=== PATIENT | male | born 1965 | race Two or more races ===

== ENCOUNTER 2017-12-05 13:12 | Inpatient (IN) | payer OTHER ==
[~2017-12-05] VITALS: Ht 165.1 cm; Wt 74.2 kg
[2017-12-05 13:17] VITALS: Ht 165.1 cm; Wt 74.2 kg
[2017-12-05 14:22] LABS: BASOPHIL % 0.4 % (0-2); PLATELET COUNT 192 x10^3mcL (130-400)
[2017-12-05 14:28] LABS: CARBON DIOXIDE 25.6 mmol/L (21-32); CHLORIDE SERUM 107 mmol/L (98-107); CREATININE SERUM 0.8 mg/dL (0.7-1.3); GFR1 > 60 mL/min; GLUCOSE SERUM 78 mg/dL (74-106); POTASSIUM SERUM 3.8 mmol/L (3.5-5.1); SODIUM SERUM 137 mmol/L (136-145)
[2017-12-05 14:32] LABS: ALBUMIN 3.6 g/dL (3.4-5.0); ALKALINE PHOSPHATASE 105 U/L (46-116); ALT/SGPT 64 U/L (16-63); AST/SGOT 36 U/L (15-37); BILIRUBIN TOTAL 1.8 mg/dL (0.20-1.00); TOTAL PROTEIN, SERUM 6.3 g/dL (6.4-8.2)
[2017-12-05 14:34] LABS: RED CELL DISTRIBUTION WIDTH 15.1 % (11.5-14.5)
[2017-12-05 14:41] LABS: microscopic required? YES; urine erythrocyte NEGATIVE (NEGATIVE)
[2017-12-05 14:56] LABS: AMPHETAMINE QUAL UR NONE DETECTED (See below)
[2017-12-05] MEDS ORDERED: LIPITOR40 MG PO (14:58)
[2017-12-05] MEDS ORDERED: PLA75 PO (14:58)
[2017-12-05] MEDS ORDERED: ASPIRIN EC325 M1 PO (14:58)
[2017-12-05] MEDS ORDERED: METOPROLOL TART25 M1 PO (14:59)
[2017-12-05] MEDS ORDERED: METFORMIN HCL500 MG PO (14:59)
[2017-12-05] MEDS ORDERED: LISINOPRIL2.5 MG PO (14:59)
[2017-12-05 15:20] LABS: MAGNESIUM 2.1 mg/dL (1.8-2.4); PHOSPHOROUS 3.5 mg/dL (2.5-4.9)
[2017-12-05 15:29] LABS: FREE T4 1.17 ng/dL (0.76-1.46); FREE THYROXINE INDEX 2.8 ug/dL (1.4-4.5); T4(THYROXINE) 7.9 ug/dL (4.7-13.3)
[2017-12-05 15:31] LABS: T3 TOTAL 1.23 ng/mL
[2017-12-05 16:36] VITALS: BP 116/83
[2017-12-05] MEDS ORDERED: HEP100I IV (17:27)
[2017-12-05] MEDS ORDERED: HEP5I IV (17:28)
[2017-12-05 17:42] VITALS: BP 110/75; BP 125/88
[2017-12-05 18:17] VITALS: BP 120/55
[2017-12-05 20:58] VITALS: BP 104/65
[2017-12-05 23:30] VITALS: BP 94/65
[2017-12-07 22:17] LABS: CHOLESTEROL/HDL RATIO 2.6
== END 2017-12-06 01:00 | disposition short-term general hospital (02) | DRG 198 ==
LOC: ED 13:12 → DU 14:16
PROVIDERS: Emergency Medicine; Family Medicine
DX: I25.110 Atherosclerotic heart disease of native coronary artery with unstable angina pectoris (principal); N17.0 Acute kidney failure with tubular necrosis; I50.43 Acute on chronic combined systolic (congestive) and diastolic (congestive) heart failure; I11.0 Hypertensive heart disease with heart failure; E11.9 Type 2 diabetes mellitus without complications; R80.9 Proteinuria, unspecified; E78.5 Hyperlipidemia, unspecified; I25.2 Old myocardial infarction; Z95.5 Presence of coronary angioplasty implant and graft
CPT/HCPCS: 82962; 83880; 84439; 85378; G0480; J1644; J7030; Q0092